=== PATIENT | female | born 1940 | race Hispanic/Latino ===

== ENCOUNTER 2016-07-06 17:40 | Inpatient (IN) | payer MEDICARE, MEDICAID ==
[~2016-07-06] VITALS: Ht 142.2 cm; Wt 65.2 kg
[2016-07-06 17:49] VITALS: BP 155/82; PULSE 106; RESP 24; O2SAT 91
--- NOTE | 2016-07-06 20:13 | DRSVH ---
PROCEDURE: X-RAY CHEST, TWO VIEWS ([id number]) INDICATIONS: cough TECHNIQUE: 2 views of the chest were acquired. COMPARISON: [facility], VIOLET, CHEST 2VW, 04/30/2014, 16:24. [facility], CR, C HEST 2VW, 09/10/2014, 15:01. FINDINGS: Surgical changes and devices: None. Lungs and pleura: No pleural effusions or pneumothorax. There is moderate chronic basilar predominan t interstitial pulmonary opacity. There appears to be slightly increased opacity within the bilateral lower lungs, consistent with superimposed pneumonia. Mediastinum: Mediastinal contours are normal. Heart size is normal. Bones and chest wall: No suspicious bony abnormalities. Soft tissues appear unremarkable. IMPRESSION: Moderate atypical pneumonia superimposed on chronic fibrosis. Dictated by: Ja Mendez M.D. on 07/06/2016 at 20:12 Approved by: Ja Mendez M.D. on 07/06/2016 at 20:12
[2016-07-06 20:54] LABS: BASOPHILS % (AUTO) 0.2 % (0-3); EOSINOPHILS % (AUTO) 0.9 % (0-5); MONOCYTES % (AUTO) 6.6 % (4-12); Mean Corpuscular Hemoglobin 27.3 pg (27.0-35.0); Mean Corpuscular Volume 80.1 fL (81-100); NEUTROPHILS % (AUTO) 83.9 % (40-74); Platelet Count 235 bil/L (150-400)
[2016-07-06] MEDS: HYDROmorphone 0.5 mg/0.5 mL iSecure Syringe IVPUSH PRN ×3 (20:58→22:15)
[2016-07-06 21:22] LABS: D-DIMER 0.9 mg/L (<0.50); INR 0.95 ratio
[2016-07-06 21:25] LABS: TROPONIN T 0.01 ug/L (0.0-0.011)
[2016-07-06] MEDS ORDERED: Azithromycin Inj 500 MG in Dextrose 5% w/Vial Mate 250 ML IV ONE (21:50)
[2016-07-06] MEDS ORDERED: cefTRIAXone Inj 1,000 MG in IV Premix 1 EACH IV ONE (21:50)
--- NOTE | 2016-07-06 22:06 | ED.REPORT ---
HPI-General Illness Date of Service Jul 06, 2016 ED Provider: Chase Singleton MD History of Present Illness: Ms. Ximena Castañeda is scheduled for CT chest tomorrow and bronchoscopy next week for increasing shortness of breath, cough, and generalized malaise/weakness. She has past medical history significant for unspecified interstitial lung disease, insulin-dependent diabetes on metformin and glipizide, and hypertension presents to [facility] emergency Department for 1 week symptoms of worsening shortness of breath, productive sputum and general malaise. Nursing Notes Stated Complaint: COUGH Chief Complaint: Respiratory Complaints Nursing Notes Reviewed: Yes Allergies: Coded Allergies: No Known Allergies (Unverified , 07/06/16) General Time Seen by MD: 18:45 Chief Complaint Breathing problem, Cough Sudden in Onset?: No Review of Systems A comprehensive review of systems was conducted with the patient and found to be negative except as above in the History of Present Illness. Full Review of Systems Constitutional: Reports: Weakness - generalized Respiratory: Reports: Prod cough, yellow, Shortness of breath Cardiovascular: Reports: Chest pain (pain with cough.) Musculoskeletal: Reports: Thoracic pain Complete sys rev & neg: except as marked. Physical Exam General: Elderly Mozambican-speaking lady sitting partially upright in bed in good spirits but tired appearing, distress controlled with 2 L oxygen nasal cannula, well-developed, well-nourished, appropriately interactive. Mild Kyphotic thoracic region. HEENT: Normocephalic, atraumatic. External ears without defect. Pupils equal, round, and reactive to light and accommodation. Anicteric sclerae, moist conjunctivae, and no lid lag. Oropharynx free of erythema and cobble stoning with moist mucosa. Neck: Supple with full range of motion. No jugular venous distension. No bruits. No lymphadenopathy or thyromegaly. Cardiovascular: Regular rate and rhythm with no murmurs, rubs, or gallops appreciated Pulmonary: No cough crackles bilaterally, no wheezes, or rhonchi, persistent cough present. Normal respiratory effort with no use of accessory muscles. Abdomen: Bowel tones present. Soft, nontender, nondistended. No hepatosplenomegaly or masses appreciated. Extremities: No clubbing, cyanosis, edema, or lymphadenopathy appreciated. Skin: Normal temperature, turgor, and texture; no rash, ulcers, or subcutaneous nodules appreciated. Neurological: Cranial nerves grossly intact. Normal muscle strength, tone, and bulk. Reflexes, coordination, and sensory function within normal limits. No known gait impairment. Psychiatric: Normal mood and affect. Alert and oriented to person, place, and time. Vital Signs Vital Signs Date Time Temp Pulse Resp B/P Pulse Ox O2 Delivery O2 Flow Rate FiO2 07/06/16 17:49 36.8 106 24 155/82 91 Room Air Interpretation & Diagnostics Lab Results Interpretation Result Diagram: 07/06/16203707/06/162037 Test 07/06/16 20:38 White Blood Count 14.9th/mm3 (3.8-10.1) Red Blood Count 4.33mil/mm3 (3.90-5.20) Hemoglobin 11.8g/dL (12.0-15.6) Hematocrit 34.7% (35.0-46.0) Mean Corpuscular Volume 80.1fL (81-100) Mean Corpuscular Hemoglobin 27.3pg (27.0-35.0) Mean Corpuscular Hemoglobin Concent 34.0% (32.0-37.0) Red Cell Distribution Width 13.2% (12.3-15.4) Platelet Count 235bil/L (150-400) Neutrophils (%) (Auto) 83.9% (40-74) Lymphocytes (%) (Auto) 8.1% (14-46) Monocytes (%) (Auto) 6.6% (4-12) Eosinophils (%) (Auto) 0.9% (0-5) Basophils (%) (Auto) 0.2% (0-3) Prothrombin Time 10.1sec (8.1-12.5) Prothromb Time International Ratio 0.95ratio Activated Partial Thromboplast Time 27.6sec (22.8-33.0) D-Dimer 0.9mg/L (<0.50) Sodium Level 131mEq/L (134-144) Potassium Level 3.8mEq/L (3.5-5.2) Chloride Level 91mEq/L (97-108) Carbon Dioxide Level 27mmol/L (18-29) Blood Urea Nitrogen 11mg/dL (8-27) Creatinine 0.59mg/dL (0.57-1.00) Estimat Glomerular Filtration Rate 142mL/min (>59) Glucose Level 89mg/dL (60-99) Lactic Acid Level 1.4mmol/L (0.4-2.0) Calcium Level 10.2mg/dL (8.5-10.1) Total Bilirubin 0.4mg/dL (0.0-1.2) Aspartate Amino Transf (AST/SGOT) 29U/L (0-50) Alanine Aminotransferase (ALT/SGPT) 12U/L (0-32) Alkaline Phosphatase 82U/L (25-165) Troponin T 0.010ug/L (0.0-0.011) Pro-B-Type Natriuretic Peptide 227.4pg/mL (0-738) Total Protein 7.8g/dL (6.4-8.4) Albumin 3.2g/dL (3.4-5.0) Re-Eval/Medical Decision Med Decision/Clinical Course Ms. Ximena Castañeda is scheduled for CT chest tomorrow and bronchoscopy next week for increasing shortness of breath, cough, and generalized malaise/weakness. She has past medical history significant for unspecified interstitial lung disease, insulin-dependent diabetes on metformin and glipizide, and hypertension. Here in the emergency department her white count was elevated to 14.9, heart rate was elevated at 106, and she was tachypneic at 24 on room air, satting 91%. She is currently afebrile. Rapid influenza screen negative. Hypercalcemic at 10.2, On chest x-ray showed a moderate increase in opacification likely atypical community-acquired pneumonia superimposed on chronic interstitial lung disease. Patient is to be admitted to the hospital under inpatient status to receive IV antibiotics 1 g Rocephin and 500 mg azithromycin. Furthermore she had an elevated d-dimer 0.9, CT chest PE was negative for PE. 1. CAP - 1 g IV rocephin, 500 mg IV azithromycin - To keep sats above 92% - Sputum culture ordered - Influenza rapid screen negative - Chest x-ray and CT confirm pneumonia. 2. Interstitial lung disease 3. Insulin-requiring diabetes II - Holding metformin continuing other medications. 4. Hypertension -Continue home medications. Discharge & Departure Shift Change Sign-Out Laboratory Evaluation: Lab evaluation discussed Imaging Studies: Imaging discussed Primary Impression: Pneumonia Referrals: Elizabeth Salmno MD (PCP) Attending Statement Evaluated Patient with Resident Dr. Arvizu and evaluated independently and agree with plan as above. 76-year-old female history of interstitial lung disease being evaluated as an outpatient presenting with chronic cough worsening over the past week with shortness breath. Cough productive green frothy sputum. Oxygen 91% on room air. Chest x-ray concerning for atypical pneumonia. CT with no evidence of PE, bilateral interstitial lung disease, mediastinal lymphadenopathy. Patient will be admitted to hospitalist service. Given one dose Rocephin, azithromycin. TYRA ARVIZU DO Jul 06, 2016 21:20 Chase Singleton MD Jul 07, 2016 00:09
[2016-07-06] MEDS ORDERED: Ondansetron 2 mg/mL 2 mL Inj IVPUSH PRN (23:30)
[2016-07-06] MEDS ORDERED: Alum-Mag Hydrox-Simeth 30 mL Suspension PO PRN ×2 (23:30→23:55)
[2016-07-06] MEDS ORDERED: Polyethylene Glycol (PEG) 17 Gm Powder PO PRN (23:55)
[2016-07-07] VITALS (8 sets, daily range): BP systolic 138–161; BP diastolic 52–77; PULSE 89–115; RESP 23–32; O2SAT 93–95
--- NOTE | 2016-07-07 00:13 | PCM.HPMED ---
Subjective Date of Service Jul 06, 2016 Primary Provider: Admitting Physician: Miles Sales MD Primary Care Physician: Elizabeth Salmon MD Attending Physician: Miles Sales MD Chief Complaint: Productive cough History of Present Illness: 76-year-old female with history of type II diabetes, diastolic heart failure with EF of 65%, hypertension, hyperlipidemia, and working diagnosis of interstitial lung disease with chronic cough presents to the emergency department after 1 week of increasing severity of cough with copious sputum production. History is obtained from group exercise instructor: Patient endorses malaise and weakness, anorexia, low by mouth intake, and chest pain bilaterally in the flanks on deep inspiration. Patient denies headache, fever, chills, changes in bowel or bladder, hemoptysis, dysuria, sore throat, myalgias. Patient was recently seen by gum remover as recently as yesterday at [facility] and notes are in the chart. At this appointment the prevailing diagnosis is interstitial lung disease the possibilities of HPV, IPF, or even sarcoidosis as there is an elevated huseyin level. CT of chest was also scheduled for tomorrow. On review of systems per patient were negative. In the ED the patient underwent chest x-ray which revealed moderate atypical pneumonia in setting of chronic fibrosis. D-dimer was mildly elevated and patient underwent CTA, which does not appear to show PE, however is currently being read by radiology. White count is 14.9, hemoglobin 11.8, hematocrit 34.7, platelets 235, left shift with neutrophils 83.9 Sodium 131, potassium at 3.8, chloride 91, bicarbonate 27, nightly 11, creatinine 0.59, glucose 89, lactic acid 1.4, calcium 10.2, LFTs normal, troponin normal, albumin is low at 3. Review of Systems: Complete his review of systems performed; pertinent positives and negatives per history of present illness, all other systems reviewed and are negative Allergies Coded Allergies: No Known Allergies (Unverified , 07/06/16) Home Medications Taken from pulmonary visit 07/05/2016 Amlodipine 10 mg tablet daily Aspirin 81 daily next cholecalciferol 1000 unit tablet daily Fluticasone 220 g actuation inhaler Glipizide 10 mg tablet daily Lantus Solostar insulin injection pen Hyzaar 100-12.5 mg tablets daily Metformin 1000 mg tablet Nitrofurantoin 100 mg capsule Pantoprazole 40 mg tablet Polyethylene glycol 17 g per dose oral patter Pravastatin 40 mg tablet ProAir HFA 90 g/actuation inhaler Sertraline 25 mg tablet PMH Type II diabetes Chronic diastolic heart failure with EF of 65%; last echo performed 03/16/2016 Hypertension Hyperlipidemia Interstitial lung disease Surgical History Hysterectomy ORIF ankle fracture Family History No family history of lung problems; patient does not know rest of family history Social History Hx Alcohol Use: Yes (occasional) Hx Substance Use: No Hx Tobacco Use: Yes Smoking Status: Former Smoker (smoked briefly for about 3 years but quit 20 years) Living Arrangement: with Family Exam Vital Signs Vital Sign - Last Date Time Temp Pulse Resp B/P Pulse Ox O2 Delivery O2 Flow Rate FiO2 07/06/16 17:49 36.8 106 24 155/82 91 Room Air Exam General: Patient is ill-appearing, very fatigued, no acute distress HEENT: PERRLA, EOMI, no JVD, mildly dry membranes Cardio: Tachycardic, no murmurs noted Respiratory: Coarse breath sounds diffusely throughout the lungs, poor respiratory effort due to pain, crackles noted in the bases bilaterally Abdomen: Nontender, positive bowel sounds, nondistended Extremities: No edema noted, no cyanosis Psych: Difficult to assess but patient seems to be a little bit down but appropriate for her current situation Neuro: Cranial nerves II through XII intact, sensation intact throughout, patient moving all 4 extremities seems annoyed To cooperate Skin: No rashes noted Lab and Diagnostics Result Diagram: 07/06/16203707/06/162037 X-Rays, CTs and MRIs Chest x-ray IMPRESSION: Moderate atypical pneumonia superimposed on chronic fibrosis. Dictated by: Ja Mendez M.D. on 07/06/2016 at 20:12 12-lead ECG Patient's sinus tachycardia with rate around 100, is left deviation of the axis , QTC is 440 Assessment & Plan 76-year-old female with type II diabetes, interstitial lung disease currently being worked up by pulmonology U presents to the ED with 1 week of worsening cough, sputum production, general malaise and weakness with a chest x-ray that reveals apical pneumonia. #1 acute hypoxia respiratory failure; is on admission; ongoing -Patient presents with symptoms consistent with CAP pneumonia -Patient requiring O2 by nasal cannula when she does not require this outpatient -Continue O2 supplementation keep saturation above 88% #2 sepsis secondary to acute community-acquired pneumonia; present on admission ; ongoing -Patient presents with symptoms consistent with CAP pneumonia, as well as elevated white count, tachycardic, and respirations about 22 -Chest x-ray reveals apical pneumonia -Patient started on Rocephin and azithromycin in the emergency department; these are appropriate for diagnosis and we will continue -Continue to follow CBC, BMP, pro-calcitonin -Blood and sputum cultures have been ordered and submitted to the lab for evaluation -Strep and legionella urine antigens will be ordered -Patient was placed in droplet precautions until influenza screen and PCR return negative -Tessalon Perles for cough -Tylenol and morphine for pain #3 type II diabetes; present admission; ongoing -Patient is on Lantus outpatient -We will order A1c -Old home oral medications -Continue Lantus at 20 units at bedtime and low correctional #4 chronic hypertension; present on admission; ongoing -Continue home Norvasc and Hyzaar does restart in a.m. -Current blood pressure 155/82 is likely due to pain induced by coughing #5 chronic hyperlipidemia; present on admission; stable -Continue on home statin #6 chronic diastolic heart failure; present admission; stable -No reason to assume that this patient is in acute CHF exacerbation as her R is no JVD or edema in the lower extremities -Of note patient is not on a beta delgado but she is on an ARB and diuretic #7 interstitial lung disease; present admission; currently being worked up outpatient #8 elevated d-dimer; present on admission; resolved -D-dimer of 0.9 with follow-up CT scan awaiting radiology read; wet read does not appear to have a pulmonary Disposition: Patient is being admitted to inpatient status under local floor with expected length of stay greater than to midnight due to severity of presentation, duration of treatment, risk of adverse events Pain Evaluation: Adequate Pain Control VTE Prophylaxis: Sub-Q Heparin (Unfractionated) Resuscitation Status: CPR: Attempt Resuscitation Attending Statement The patient was seen and examined together with Dr. Sanchez on 07/06 and I agree with the history, exam and plan as outlined in the note above. Laurent Sanchez DO Jul 06, 2016 23:59 Miles Sales MD Jul 07, 2016 01:17
[2016-07-07] MEDS: Heparin 5,000 Unit/mL Inj SUBQ SCH ×3 (01:43→17:30)
[2016-07-07] MEDS: 0.9% Sodium Chloride 1,000 ML IV SCH ×3 (01:43→21:09)
[2016-07-07 05:37] LABS: BASOPHILS % (AUTO) 0.2 % (0-3); EOSINOPHILS % (AUTO) 0.8 % (0-5); MONOCYTES % (AUTO) 7.1 % (4-12); Mean Corpuscular Hemoglobin 26.9 pg (27.0-35.0); Mean Corpuscular Volume 79.8 fL (81-100); Platelet Count 209 bil/L (150-400)
[2016-07-07 05:56] LABS: APPEARANCE,URINE HAZY (CLEAR,HAZY); COLOR,URINE YELLOW (YELLOW); OCCULT BLOOD,URINE TRACE (NEGATIVE); UROBILINOGEN,URINE NORMAL (NORMAL)
[2016-07-07 05:57] LABS: Magnesium 1.4 mg/dL (1.6-2.6)
[2016-07-07] MEDS ORDERED: GLIP10TA10 PO (06:40)
[2016-07-07] MEDS ORDERED: ASPI-973 PO (06:40)
[2016-07-07] MEDS ORDERED: FLUT12AE10 IH ×2 (06:40→18:03)
[2016-07-07] MEDS ORDERED: INSU100V7 SUBQ (06:40)
[2016-07-07] MEDS ORDERED: METF1000 PO (06:40)
[2016-07-07] MEDS ORDERED: AMLO10TA3 PO (06:40)
[2016-07-07] MEDS ORDERED: LOSA1TAB35 PO (06:40)
[2016-07-07] MEDS ORDERED: SERT25TA6 PO (06:40)
[2016-07-07] MEDS ORDERED: ALBU18HF INH ×2 (06:40→18:03)
[2016-07-07] MEDS ORDERED: CHOL100043 PO (06:40)
--- NOTE | 2016-07-07 06:48 | NUR ---
Admission note Pt was admitted as inpatient to ER #14 approx at 0115. Admission assessment and screening completed. Med-Rec updated. Pt was up to BR x 3. She walked approx. 150 feet. She tolerated well. VSS. Pt is Divehi speaking only. Spouse at the bedside providing support and comfort. No overt complications noted.
[2016-07-07] MEDS: Insulin Human REGular 300 Unit/3 mL Inj SUBQ SCH ×4 (07:51→21:51)
--- NOTE | 2016-07-07 08:24 | DRSVH ---
PROCEDURE: CT ANGIO CHEST PULMONARY EMBOLISM ([id number]) INDICATIONS: Dyspnea elevated ddimer TECHNIQUE: After the administration of intravenous contrast, 2 mm thick sections acquired from the pulmonary api bernice to the posterior costophrenic angles. 3-dimensional maximum intensity projection (MIP) coronal a nd sagittal reformats were then acquired through the thorax. For radiation dose reduction, the follo wing was used: automated exposure control, adjustment of mA and/or kV according to patient size. COMPARISON: [facility], CT, CHEST W/O CONTRAST, 09/17/2014, 13:58. FINDINGS: Image quality: Evaluation of pulmonary arterial system is limited secondary to timing of bolus and mo tion artifact. Mid and peripheral branches are considered nondiagnostic for evaluation of potential e mboli. Pulmonary arteries: Pulmonary arteries are normal in size, and demonstrate no intraluminal filling d efects to suggest central pulmonary embolism. Lungs and pleura: Prominent interstitial lung disease is present with honeycombing at the bases. No e ffusions or pneumothorax. Mediastinum: Heart size is normal, without pericardial effusion. No mediastinal or hilar adenopathy by size criteria, numerous lymph nodes are present, borderline in size.. Thoracic aorta is normal i n caliber and enhancement. Esophagus demonstrates distal thickening with hiatal hernia. Bones and chest wall: No suspicious bony lesions. Ribs and thoracic spine appear intact throughout. Thyroid gland is enlarged with multiple areas of low attenuation bilaterally.. No axillary or supr aclavicular adenopathy. Abdomen: Visualized upper abdominal solid organs appear normal in the early arterial phase of enhanc ement. IMPRESSION: 1. No evidence of central pulmonary embolism. Branches distal to the main pulmonary artery are consid ered nondiagnostic for evaluation, as above. 2. Severe interstitial lung disease. 3. Multiple borderline enlarged mediastinal lymph nodes as above, overall nonspecific. This could be related to infection or inflammation. However, recommend clinical history as associated with neoplasm cannot be excluded. 4. Enlarged thyroid gland with multiple areas of low attenuation, possibly related to nodules. Their overall unchanged. 5. Distal esophageal thickening, without significant interval change compared to 09/17/14. This could represent chronic esophagitis. If clinical concern exists, endoscopy may be obtained for additional e valuation. Dictated by: More Yo M.D. on 07/07/2016 at 8:23 Approved by: More Yo M.D. on 07/07/2016 at 8:23
[2016-07-07] MEDS ORDERED: Magnesium Sulf 4 Gm/100 mL H2O 4 GM in IV Premix 1 EACH IV ONE (08:30)
[2016-07-07] MEDS ORDERED: Potassium Chloride 20 mEq/15 mL 15mL Oral Soln PO ONE ×2 (08:30→12:15)
--- NOTE | 2016-07-07 12:20 | NUR ---
Social Work Note Initial Assessment: D/A: EMR reviewed, SW met with Pt and Pt's friend Alycia at [facility] with the assistance of an instrument installer to explain role and to discuss discharge planning. The Pt is a 76 y/o female that was admitted for pneumonia on 07/06/2016 according to EMR. Readmission score is not listed. The Pt has [employer] with DSHS supplement; unknown if Pt has LTC or VA benefits. The Pt's PCP is MD Elizabeth Salmon. The Pt lives in [place] with her , son, and [id number]. The Pt is independent at baseline. It is unknown at this time is she drives, is a caregiver, or utilizes any DME. The Pt's HH and SNF history is unknown at this time. The Pts DPOA status is unknown at this time. The Pt's friend stated that she or the Pt's son would be able to provide transportation home after discharge. 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 It was reported that the Pt's son is also in the process of applying for [employer] for the Pt via [employer]. SW will follow up with son when available to request additional information and offer support. SW will continue to follow. Plan: Pt to be discharge when medically stable with friend or family to provide transportation. SW to follow up with son when available to request additional information and offer support. SW will continue to follow. DANGELO Velasco MSW Addendum: 07/07/16 at 1221 by VALERIE THOMPSON Amended: Links added.
--- NOTE | 2016-07-07 14:07 | NUR ---
Transfer to [facility] Pt being transferred to [facility], room 3015 from ER. Pt has denied any pain today, tolerating general, diabetic diet without c/o nausea. Plan of care reviewed with pt and pt's family with the assistance of broadcast designer earlier today. Pt ready for transfer with all belongings. Report given to Cheryl Lisa RN. Addendum: 07/07/16 at 1715 by MATEO CHOWDHURY Admission Admit to room 3015 from ER via bed with family at bedside. Pleat Taper offered and declined. 2-3L O2 NC. IV self d/c'd, new placed. IVF infusing, Mag rider retrieved from pharmacy and initiated. Pt and family oriented to room and call light. Provider assessed. Plan updated on board. Making needs known using call light.
--- NOTE | 2016-07-07 15:08 | PCM.PNMED ---
Subjective Date of Service Jul 07, 2016 Subjective Patient appearing too exhausted and sleepy to answer questions. Friend at bedside. Endorses chills. Denies CP, fevers or nausea. Exam Vital Signs Vital Sign - Last Date Time Temp Pulse Resp B/P Pulse Ox O2 Delivery O2 Flow Rate FiO2 07/07/16 09:31 92 07/07/16 07:42 Supplement Oxygen 07/07/16 07:38 37.1 23 160/74 95 4.00 Intake and Output 07/06/16 07/06/16 07/07/16 Cumulative From/Thru 15:00 23:00 07:00 07/06/16 17:49 - 07/07/16 06:50 Intake Total 20 ml 624 ml 644 ml Balance 20 ml 624 ml 644 ml Intake IV Total 20 ml 624 ml 644 ml # Voids 3 3 Exam GEN: Patient is ill-appearing, appears fatigued, no acute distress, falling asleep between questions HEENT: PERRLA, EOMI, no JVD, dry mucous membranes CV: RRR, no murmurs appreciated, peripheral pulses intact and normal Respiratory: Coarse breath sounds with diffused crackles on bibasilar basis. shallow breaths, no use of accessory muscles, Abdomen: Soft, nontender, non-distended with normal bowel tones Extremities: No edema noted, no cyanosis Neuro: CN 2-12 grossly intact Psych: difficult to assess due to patient falling asleep IVs and Medications Medications Reviewed: Medications were reviewed in detail Lab and Diagnostics Result Diagram: 07/07/16 0515 07/07/16 0515 X-Rays, CTs and MRIs Chest x-ray IMPRESSION: Moderate atypical pneumonia superimposed on chronic fibrosis. Dictated by: Ja Mendez M.D. on 07/06/2016 at 20:12 12-lead ECG Patient's sinus tachycardia with rate around 100, is left deviation of the axis , QTC is 440 Assessment & Plan 76-year-old female with type II diabetes, interstitial lung disease currently being worked up by pulmonology U presents to the ED with 1 week of worsening cough, sputum production, general malaise and weakness with a chest x-ray that reveals atypical pneumonia. #1 acute hypoxia respiratory failure; present on admission; ongoing -Patient presents with symptoms consistent with CAP pneumonia -Patient requiring O2 by nasal cannula when she does not require this outpatient -Continue O2 supplementation keep saturation above 88% #2 sepsis secondary to acute community-acquired pneumonia; present on admission ; ongoing -Patient presents with symptoms consistent with CAP pneumonia, as well as elevated white count, tachycardic, and respirations about 22 -Chest x-ray reveals atypical pneumonia -Continue Rocephin and azithromycin -CURB 65 score of 2, moderate risk group with 6.8% 30-day mortality -Flu, strep, legionella and PCR negative -Procalcitonin pending -Sputum culture pending -Tessalon Lynn for cough -Tylenol and morphine for pain #3 type II diabetes; present admission; chronic -Patient is on Lantus outpatient -Continue Lantus at 20 units at bedtime and low correctional -Metformin held -A1c pending #4 chronic hypertension; present on admission; ongoing -Continue home Norvasc and Hyzaar #5 chronic hyperlipidemia; present on admission; stable -Continue on home statin #6 chronic diastolic heart failure; present admission; stable -No reason to assume that this patient is in acute CHF exacerbation as her R is no JVD or edema in the lower extremities -Of note patient is not on a beta delgado but she is on an ARB and diuretic #7 interstitial lung disease; present admission; currently being worked up outpatient #8 elevated d-dimer; present on admission; resolved -D-dimer of 0.9 with follow-up CT negative for PE Dispo: Anticipate discharge once medically stable in 2-3 days. VTE Prophylaxis: Sub-Q Heparin (Unfractionated) Resuscitation Status: CPR: Attempt Resuscitation Time spent 30 minutes Attending Statement I have seen and examined patient at bedside in addition to directly supervising care provided by resident physician. I agree with above documentation. Serene Watkins DO Jul 07, 2016 10:44 Ld Amaral DO Jul 08, 2016 07:33
[2016-07-07] MEDS: cefTRIAXone Inj 2,000 MG in Dextrose 5% Minibag Plus 50 ML IV SCH (17:29)
[2016-07-07] MEDS ORDERED: Albuterol HFA 60 Puff 8 Gm Inhaler INHALATION PRN (18:00)
[2016-07-07] MEDS ORDERED: Albuterol 2.5 mg/3 mL Inhalation Solution NEB PRN (20:00)
[2016-07-07] MEDS ORDERED: Fluticasone 250 mCg Inhaler INHALATION SCH (20:30)
[2016-07-07] MEDS: Fluticasone 250 mCg Inhaler INHALATION SCH (21:34)
[2016-07-07] MEDS: Azithromycin Inj 500 MG in Dextrose 5% w/Vial Mate 250 ML IV SCH (21:49)
[2016-07-07] MEDS: Insulin GLARgine 100 Unit/mL Syringe SUBQ SCH (21:50)
[2016-07-08 00:45] VITALS: BP 161/71; PULSE 77; RESP 24; O2SAT 94
[2016-07-08] MEDS: Heparin 5,000 Unit/mL Inj SUBQ SCH ×3 (00:50→16:03)
[2016-07-08] MEDS: 0.9% Sodium Chloride 1,000 ML IV SCH ×2 (05:02→15:57)
[2016-07-08 05:45] VITALS: BP 163/73; PULSE 83; RESP 22; O2SAT 93
--- NOTE | 2016-07-08 06:00 | NUR ---
Fever/Cough Pt was febrile 37.8. Administered 975mg Tylenol and effective, no further Fevers. pt c/o of cough and requesting medication to help decrease cough. Administered 100mg Tessalon pearls and helpful. VSS and pt is no longer on tele.
[2016-07-08 06:58] LABS: BASOPHILS % (AUTO) 0.2 % (0-3); MONOCYTES % (AUTO) 6.5 % (4-12); Mean Corpuscular Volume 81.4 fL (81-100); NEUTROPHILS % (AUTO) 77.4 % (40-74); Platelet Count 205 bil/L (150-400)
[2016-07-08 07:39] LABS: Magnesium 1.7 mg/dL (1.6-2.6)
[2016-07-08] MEDS ORDERED: HCTZ PO SCH (08:30)
[2016-07-08] MEDS ORDERED: LOSARTAN PO SCH (08:30)
[2016-07-08] MEDS: Ketotifen 0.025% 5 mL Ophthalmic Solution BOTH_EYES SCH ×2 (08:30→22:23)
[2016-07-08] MEDS ORDERED: KETO5DRO60 BOTH_EYES (08:38)
[2016-07-08] MEDS: Insulin Human REGular 300 Unit/3 mL Inj SUBQ SCH ×4 (08:44→21:21)
[2016-07-08] MEDS: Fluticasone 250 mCg Inhaler INHALATION SCH ×2 (08:49→21:16)
[2016-07-08 14:02] VITALS: BP 189/74; PULSE 91; RESP 24; O2SAT 95
--- NOTE | 2016-07-08 15:32 | NUR ---
Social Work: Readiness for d/c Data: Pt is on day 2 of hospitalization. EMR reviewed, pt discussed in rounds. MD states pt likely to d/c tomorrow. HEAD OF LOSS PREVENTION met with pt and son with orthoptist. They state that pt's son plans to bring pt home at discharge. HEAD OF LOSS PREVENTION asked if they would be interested in services and explained what the services are. They are interested and state no preference. HEAD OF LOSS PREVENTION referred to rotating calendar and referred pt to [facility], spoke with Luis Marques [phone]. Access given, F2F in HEAD OF LOSS PREVENTION folder. HEAD OF LOSS PREVENTION received a phone call from Viridiana GOMEZ CM with [facility] and HEAD OF LOSS PREVENTION gave her an update on pt and d/c plan. HEAD OF LOSS PREVENTION will continue to follow. Assessment: Pt who is independent at baseline. Plan: Pt will d/c home via POV when medically stable with son, likely tomorrow, with [facility] RN. HEAD OF LOSS PREVENTION will continue to follow. DANGELO Soni
--- NOTE | 2016-07-08 15:40 | PCM.PNMED ---
Subjective Date of Service Jul 08, 2016 Subjective Overnight with mild temperature elevation resolved by acetaminophen. Today, patient reports she is doing much better. Still continues to have much coughing. Otherwise with good appetite. Endorses SOB. Denies CP, pleuritic pain , fevers, chills or nausea. Exam Vital Signs Vital Sign - Last Date Time Temp Pulse Resp B/P Pulse Ox O2 Delivery O2 Flow Rate FiO2 07/08/16 14:02 37.1 91 24 189/74 95 Nasal Cannula 2.00 Intake and Output 07/07/16 07/07/16 07/08/16 Cumulative From/Thru 15:00 23:00 07:00 07/06/16 17:49 - 07/08/16 06:42 Intake Total 553 ml 385 ml 1116 ml 2698 ml Output Total 150 ml 100 ml 250 ml Balance 403 ml 285 ml 1116 ml 2448 ml Intake Oral 150 ml 150 ml IV Total 553 ml 235 ml 1116 ml 2548 ml Output Urine Total 150 ml 100 ml 250 ml # Voids 1 4 # Bowel Movements 1 1 2 Exam GEN: Patient sitting at bedside having breakfast, no acute distress HEENT: PERRLA, EOMI, no JVD, moist mucous membranes CV: RRR, no murmurs appreciated, peripheral pulses intact and normal Respiratory: Diffused crackles on bibasilar basis. shallow breaths, no use of accessory muscles, Abdomen: Soft, nontender, non-distended with normal bowel tones Extremities: No edema noted, no cyanosis Neuro: CN 2-12 grossly intact Psych: Normal mood and affect IVs and Medications Medications Reviewed: Medications were reviewed in detail Lab and Diagnostics Result Diagram: 07/08/16 0630 07/08/16 0630 X-Rays, CTs and MRIs Chest x-ray IMPRESSION: Moderate atypical pneumonia superimposed on chronic fibrosis. Dictated by: Ja Mendez M.D. on 07/06/2016 at 20:12 12-lead ECG Patient's sinus tachycardia with rate around 100, is left deviation of the axis , QTC is 440 Assessment & Plan 76-year-old female with type II diabetes, interstitial lung disease currently being worked up by pulmonology U presents to the ED with 1 week of worsening cough, sputum production, general malaise and weakness with a chest x-ray that reveals atypical pneumonia. #1 acute hypoxia respiratory failure; present on admission; improving -Patient presents with symptoms consistent with CAP pneumonia -Patient requiring O2 by nasal cannula when she does not require this outpatient -Continue O2 supplementation keep saturation above 88% #2 sepsis secondary to acute community-acquired pneumonia; present on admission ; Resolved. -Patient presents with symptoms consistent with CAP pneumonia, as well as elevated white count, tachycardic, and respirations about 22 -Chest x-ray reveals atypical pneumonia -Continue Rocephin and azithromycin -CURB 65 score of 2, moderate risk group with 6.8% 30-day mortality -Flu, strep, legionella and PCR negative -Procalcitonin 0.10 -Sputum culture pending -Tessalon Perles for cough -Tylenol and morphine for pain #3 type II diabetes; present admission; chronic -Patient is on Lantus outpatient -Continue Lantus at 20 units at bedtime and low correctional -Metformin held -A1c 7.6 #4 chronic hypertension; present on admission; ongoing -Continue home Norvasc and Hyzaar #5 chronic hyperlipidemia; present on admission; stable -Continue on home statin #6 chronic diastolic heart failure; present admission; stable -No reason to assume that this patient is in acute CHF exacerbation as her R is no JVD or edema in the lower extremities -Of note patient is not on a beta delgado but she is on an ARB and diuretic #7 interstitial lung disease; present admission; currently being worked up outpatient - patient to postpone bronchoscopy scheduled for tomorrow morning #8 elevated d-dimer; present on admission; resolved -D-dimer of 0.9 with follow-up CT negative for PE DVT prophy: Heparin SubQ, SCD GI prophy: not indicated CODE: FULL Dispo: Anticipate discharge tomorrow on oral antibiotics. VTE Prophylaxis: Sub-Q Heparin (Unfractionated), SCDs Resuscitation Status: CPR: Attempt Resuscitation Time spent 25 minutes Attending Statement I have seen and evaluated patient at bedside in addition to directly supervising care provided by resident physician. I agree with above documentation. Serene Watkins DO Jul 08, 2016 15:32 Ld Amaral DO Jul 09, 2016 08:37
[2016-07-08] MEDS: cefTRIAXone Inj 2,000 MG in Dextrose 5% Minibag Plus 50 ML IV SCH (15:58)
[2016-07-08 18:31] VITALS: BP 168/77; PULSE 89; RESP 24; O2SAT 96
[2016-07-08 20:57] VITALS: BP 157/78; PULSE 91; RESP 22; O2SAT 94
[2016-07-08] MEDS: Azithromycin Inj 500 MG in Dextrose 5% w/Vial Mate 250 ML IV SCH (21:16)
[2016-07-08] MEDS: Insulin GLARgine 100 Unit/mL Syringe SUBQ SCH (21:21)
[2016-07-09] MEDS: Heparin 5,000 Unit/mL Inj SUBQ SCH ×3 (01:35→17:16)
[2016-07-09] MEDS: 0.9% Sodium Chloride 1,000 ML IV SCH (03:15)
[2016-07-09 05:28] VITALS: BP 161/73; PULSE 89; RESP 20; O2SAT 95
[2016-07-09 06:19] LABS: BASOPHILS % (AUTO) 0.3 % (0-3); EOSINOPHILS % (AUTO) 1.5 % (0-5); MONOCYTES % (AUTO) 7.6 % (4-12); Mean Corpuscular Hemoglobin 27.4 pg (27.0-35.0); Mean Corpuscular Volume 78.7 fL (81-100); Platelet Count 256 bil/L (150-400)
--- NOTE | 2016-07-09 07:20 | NUR ---
Respiration Pt intermittent cough, yellowish sputum,small amount, mild sob with activities. Crackles and coarse lung sounds bilateral posterior LLs mostly, a few wheezes. SPO2 around 94% on O2 2l per nc. Tessalon barrett given, cough improved a little. VSS, afebrile.
[2016-07-09] MEDS: Insulin Human REGular 300 Unit/3 mL Inj SUBQ SCH ×4 (08:43→21:26)
[2016-07-09 09:23] VITALS: BP 178/81; PULSE 64; RESP 40; O2SAT 94
[2016-07-09] MEDS: Fluticasone 250 mCg Inhaler INHALATION SCH ×2 (09:35→21:16)
--- NOTE | 2016-07-09 13:35 | NUR ---
P: IV site leakage, infiltration I: D/C'd L AC IV; started new IV in R wrist E: One successful attempt. Patient tolerated procedure well. No leakage or infiltration of new IV site noted upon reassessment.
--- NOTE | 2016-07-09 13:36 | DRSVH ---
PROCEDURE: X-RAY CHEST ONE VIEW, PORTABLE ([id number]) INDICATIONS: hypoxia, ?volume overload TECHNIQUE: One view of the chest was acquired. COMPARISON: [facility], CR, XR CHEST 2VW, 07/06/2016, 19:56. FINDINGS: Surgical changes and devices: Diffuse, widespread bilateral pulmonary interstitial and air space opa cities are present increased from prior examination. Trace left pleural effusion. Lungs and pleura: No pleural effusions or pneumothorax. Lungs are clear. Mediastinum: Mediastinal contours appear normal. Heart size is normal. Bones and chest wall: No suspicious bony lesions. Overlying soft tissues appear unremarkable. IMPRESSION: Increasing pulmonary edema and/or diffuse bilateral inflammatory process and trace left p leural effusion is noted. Dictated by: Jj CANTOR Interpreted: More Yo MD on 07/09/2016 at 13:36 Transcribed by: RENETTA on 07/09/2016 at 13:36 Approved by: More Yo M.D. on 07/09/2016 at 15:24
[2016-07-09 14:12] VITALS: BP 128/73; PULSE 76; RESP 34; O2SAT 93
[2016-07-09] MEDS ORDERED: Furosemide 10 mg/mL 2 mL Inj IVPUSH ONE (14:15)
[2016-07-09] MEDS: cefTRIAXone Inj 2,000 MG in Dextrose 5% Minibag Plus 50 ML IV SCH (15:00)
[2016-07-09] MEDS ORDERED: 0.9% Sodium Chloride 250 ML ONE (16:11)
[2016-07-09 18:12] VITALS: BP 182/75; PULSE 87; RESP 38; O2SAT 95
--- NOTE | 2016-07-09 19:16 | PCM.PNMED ---
Subjective Date of Service Jul 09, 2016 Subjective No overnight events. Patient continues to complain of cough and mild shortness of breath. Endorses mild headache. Otherwise no concerns or complaints. Denies CP, throat or abdominal pain, fevers, chills or nausea. Exam Vital Signs Vital Sign - Last Date Time Temp Pulse Resp B/P Pulse Ox O2 Delivery O2 Flow Rate FiO2 07/09/16 18:12 37.1 87 38 182/75 95 Nasal Cannula 1.50 Intake and Output 07/08/16 07/08/16 07/09/16 Cumulative From/Thru 15:00 23:00 07:00 07/06/16 17:49 - 07/09/16 06:48 Intake Total 100 ml 1809 ml 1742 ml 6349 ml Output Total 1300 ml 1325 ml 2875 ml Balance -1200 ml 484 ml 1742 ml 3474 ml Intake Oral 100 ml 770 ml 200 ml 1220 ml IV Total 1039 ml 1542 ml 5129 ml Output Urine Total 1300 ml 1325 ml 2875 ml # Voids 4 8 # Bowel Movements 3 1 0 6 Exam GEN: Patient sitting at bedside dosing off, no acute distress HEENT: PERRLA, EOMI, no JVD, moist mucous membranes CV: RRR, no murmurs appreciated, peripheral pulses intact and normal Respiratory: Diffused rhonchi with crackles at bibasilar basis. slight wheezing appreciated on left, poor inspiratory effort provoking cough, no use of accessory muscles, Abdomen: Soft, nontender, non-distended with normal bowel tones Extremities: No edema noted, no cyanosis Neuro: CN 2-12 grossly intact Psych: Normal mood and affect IVs and Medications Medications Reviewed: Medications were reviewed in detail Lab and Diagnostics Result Diagram: 07/09/16 0550 07/09/16 0550 Microbiology Viral respiratory PCR panel negative Flu negative Strep pneumo negative X-Rays, CTs and MRIs Chest x-ray IMPRESSION: Moderate atypical pneumonia superimposed on chronic fibrosis. Dictated by: Ja Mendez M.D. on 07/06/2016 at 20:12 Date of Service: 07/09/16 0835 PROCEDURE: X-RAY CHEST ONE VIEW, PORTABLE ([id number]) INDICATIONS: hypoxia, ?volume overload IMPRESSION: Increasing pulmonary edema and/or diffuse bilateral inflammatory process and trace left pleural effusion is noted. Dictated by: Jj Choffel RRA Interpreted: More Yo MD on 07/09/2016 at 13: 36 12-lead ECG Patient's sinus tachycardia with rate around 100, is left deviation of the axis , QTC is 440 Assessment & Plan 76-year-old female with type II diabetes, interstitial lung disease currently being worked up by pulmonology U presents to the ED with 1 week of worsening cough, sputum production, general malaise and weakness with a chest x-ray that reveals atypical pneumonia. #1 acute hypoxia respiratory failure; present on admission; ongoing -Patient presents with symptoms consistent with CAP pneumonia -Patient requiring O2 by nasal cannula when she does not require this outpatient -Continue O2 supplementation keep saturation above 88% -Repeat CXR today shows Increasing pulmonary edema and/or diffuse bilateral inflammatory process and trace left pleural effusion -patient tolerating oral intake, IVF stopped #2 sepsis secondary to acute community-acquired pneumonia; present on admission ; Resolved. -Patient presents with symptoms consistent with CAP pneumonia, as well as elevated white count, tachycardic, and respirations about 22 -Chest x-ray reveals atypical pneumonia -Continue Rocephin and azithromycin Day3 -CURB 65 score of 2, moderate risk group with 6.8% 30-day mortality -Flu, strep, legionella and PCR negative -Procalcitonin 0.10 -Sputum culture negative -Tessalon Perles for cough -Tylenol and morphine for pain #3 hyponatremia; present on admission; ongoing -patient has IDL, SIADH a possibility -Lasix given today -will consider pulmonary consult if not resolving #4 chronic hypertension; present on admission; ongoing -Continue home Norvasc and Hyzaar -HCTZ increased from 12.5mg to 25mg -Metoprolol 12.5mg BID added #5 type II diabetes; present admission; chronic -Patient is on Lantus outpatient -Continue Lantus at 20 units at bedtime and low correctional -Metformin held -A1c 7.6 #6 chronic hyperlipidemia; present on admission; stable -Continue on home statin #7 chronic diastolic heart failure; present admission; stable -No reason to assume that this patient is in acute CHF exacerbation as her R is no JVD or edema in the lower extremities -Of note patient is not on a beta delgado but she is on an ARB and diuretic #8 interstitial lung disease; present admission; currently being worked up outpatient - patient to postpone scheduled outpatient bronchoscopy scheduled 07/09 #9 elevated d-dimer; present on admission; resolved -D-dimer of 0.9 with follow-up CT negative for PE DVT prophy: Heparin SubQ, SCD GI prophy: not indicated CODE: FULL Dispo: Anticipate discharge tomorrow on oral antibiotics. VTE Prophylaxis: Sub-Q Heparin (Unfractionated), SCDs VTE Mechanical Devices: Intermittant Pneumatic CD Resuscitation Status: CPR: Attempt Resuscitation Time spent 25 minutes Attending Statement I have seen and evaluated patient at bedside in addition to directly supervising care provided by resident physician. I agree with above documentation. eSrene Watkins DO Jul 09, 2016 19:10 Ld Amaral DO Jul 10, 2016 12:08
[2016-07-09] MEDS: Azithromycin Inj 500 MG in Dextrose 5% w/Vial Mate 250 ML IV SCH (21:17)
[2016-07-09] MEDS: Insulin GLARgine 100 Unit/mL Syringe SUBQ SCH (21:27)
[2016-07-09 22:23] VITALS: BP 171/75; PULSE 89; RESP 24; O2SAT 93
[2016-07-10] MEDS: Heparin 5,000 Unit/mL Inj SUBQ SCH ×2 (00:52→08:40)
[2016-07-10 01:10] VITALS: BP 172/75; PULSE 91; RESP 22; O2SAT 93
[2016-07-10 04:50] VITALS: BP 165/60; PULSE 76; RESP 24; O2SAT 92
--- NOTE | 2016-07-10 05:50 | NUR ---
Hypertension BP 177/73, 172/75, 165/60 HR 90s overnight, pt denies headaches. Pt currently on 4 types of scheduled hypertensive meds: Amlodipine, Losartan, hydrochlorothiazide dose increased yesterday, Metoprol added yesterday. Continue monitoring.
[2016-07-10 06:50] LABS: BASOPHILS % (AUTO) 0.3 % (0-3); EOSINOPHILS % (AUTO) 2.6 % (0-5); MONOCYTES % (AUTO) 8.6 % (4-12); Mean Corpuscular Hemoglobin 27.1 pg (27.0-35.0); Mean Corpuscular Volume 78.4 fL (81-100); NEUTROPHILS % (AUTO) 75.7 % (40-74); Platelet Count 276 bil/L (150-400)
[2016-07-10] MEDS ORDERED: Potassium Chloride 20 mEq SR Tablet PO ONE (07:45)
[2016-07-10] MEDS: Fluticasone 250 mCg Inhaler INHALATION SCH (08:40)
[2016-07-10] MEDS: Insulin Human REGular 300 Unit/3 mL Inj SUBQ SCH ×2 (08:40→11:26)
[2016-07-10 14:00] VITALS: BP 171/60; PULSE 91; RESP 22; O2SAT 93
[2016-07-10] MEDS: cefTRIAXone Inj 2,000 MG in Dextrose 5% Minibag Plus 50 ML IV SCH ×2 (14:43→14:53)
--- NOTE | 2016-07-10 14:59 | PCM.DIMED ---
Serene Watkins DO 07/10/16 1457: Discharge Instructions Date of Service Jul 10, 2016 Dates of Hospitalization Jul 06, 2016 at 22:34 Discharge Diagnosis Discharge Diagnosis #1 acute hypoxia respiratory failure #2 sepsis secondary to acute community-acquired pneumonia #3 type II diabetes; present admission #4 chronic hypertension; present on admission #5 chronic hyperlipidemia #6 chronic diastolic heart failure; present admission #7 interstitial lung disease; present admission; currently being worked up outpatient #8 elevated d-dimer; present on admission; resolved Diet Heart Healthy, Diabetic Activity Limited until seen by PCP Call your provider Fever or Chills, Shortness of breath, Chest pain Patient Instructions Please take the antibiotics for the next two days. We have made two changes to your blood pressure medications. - Your hydrochlorothiazide medication has been increased from 12.5mg daily to 25mg daily - Metoprolol 12.5 mg twice daily You are given more of the cough suppressants to take as needed for your cough. Please use as prescribed. 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 Make sure you follow up with your PCP, Dr. Johnson in 7-10 days to have hospital follow up and your blood pressure checked. Follow-up Provider: Elizabeth Salmon MD Follow-up with PCP in: 2 weeks Ld Amaral DO 07/11/16 0739: Discharge Instructions Attending's Statement Read and agree. Serene Watkins DO Jul 10, 2016 14:57 Ld Amaral DO Jul 11, 2016 07:39
[2016-07-10] MEDS ORDERED: BENZ100C8 PO (15:12)
[2016-07-10] MEDS ORDERED: PRA20 PO (15:12)
[2016-07-10] MEDS ORDERED: AZIT500T5 PO (15:12)
[2016-07-10] MEDS ORDERED: METO25TA6 PO (15:12)
[2016-07-10] MEDS ORDERED: LOSA1TAB70 PO (15:12)
--- NOTE | 2016-07-10 16:21 | NUR ---
Social Work: Discharge Data: Pt is on day 4 of hospitalization. EMR reviewed. Pt d/c orders are in. [employer]ER notified [facility] and faxed F2F to them. Access previously given. Pt's son plans to drive pt home today. No further d/c planning needs. Assessment: Pt who is independent at baseline. Plan: Pt will d/c home via POV today with family and [facility] RN. No further d/c planning needs. DANGELO Soni
--- NOTE | 2016-07-10 16:42 | NUR ---
Discharge Pt discharged to home at 1639. Taken off unit in wheelchair, accompanied by SENIOR FUNCTIONAL ANALYST and family. All pt belongings sent with pt. Discharge paperwork given and explained. Clinical Resource Director on a stick used for interpretation of instructions, as well as Icelandic speaking son. Hard copies of prescriptions given and pt instructed to follow up with PCP in 7-10 days.
--- NOTE | 2016-07-11 08:41 | PCM.DC.MED ---
Discharge Summary Date of Service Jul 10, 2016 Dates of Hospitalization Date of Hospital Admission Jul 06, 2016 at 22:34 Date of Discharge: Jul 10, 2016 Providers: Admitting Physician: Miles Sales MD Primary Care Physician: Elizabeth Salmon MD Attending Physician: Miles Sales MD Diagnosis at Time of Discharge Diagnosis at Time of Discharge #1 acute hypoxia respiratory failure #2 sepsis secondary to acute community-acquired pneumonia #3 type II diabetes; present admission #4 chronic hypertension; present on admission #5 chronic hyperlipidemia #6 chronic diastolic heart failure; present admission #7 interstitial lung disease; present admission; currently being worked up outpatient #8 elevated d-dimer; present on admission; resolved Procedures XRay, CTs & MRIs Chest x-ray IMPRESSION: Moderate atypical pneumonia superimposed on chronic fibrosis. Dictated by: Ja Mendez M.D. on 07/06/2016 at 20:12 Date of Service: 07/06/16 6306 PROCEDURE: CT ANGIO CHEST PULMONARY EMBOLISM ([id number]) INDICATIONS: Dyspnea elevated ddimer IMPRESSION: 1. No evidence of central pulmonary embolism. Branches distal to the main pulmonary artery are considered nondiagnostic for evaluation, as above. 2. Severe interstitial lung disease. 3. Multiple borderline enlarged mediastinal lymph nodes as above, overall nonspecific. This could be related to infection or inflammation. However, recommend clinical history as associated with neoplasm cannot be excluded. 4. Enlarged thyroid gland with multiple areas of low attenuation, possibly related to nodules. Their overall unchanged. 5. Distal esophageal thickening, without significant interval change compared to 09/17/14. This could represent chronic esophagitis. If clinical concern exists , endoscopy may be obtained for additional evaluation. Dictated by: More Yo M.D. on 07/07/2016 at 8:23 Date of Service: 07/09/16 0835 PROCEDURE: X-RAY CHEST ONE VIEW, PORTABLE ([id number]) INDICATIONS: hypoxia, ?volume overload IMPRESSION: Increasing pulmonary edema and/or diffuse bilateral inflammatory process and trace left pleural effusion is noted. Dictated by: Jj Borden [facility] Interpreted: More Yo MD on 07/09/2016 at 13: 36 ECG 12 Lead Patient's sinus tachycardia with rate around 100, is left deviation of the axis , QTC is 440 Brief History 76-year-old female with history of type II diabetes, diastolic heart failure with EF of 65%, hypertension, hyperlipidemia, and working diagnosis of interstitial lung disease with chronic cough presents to the emergency department after 1 week of increasing severity of cough with copious sputum production. History is obtained from seismic interpreter: Patient endorses malaise and weakness, anorexia, low by mouth intake, and chest pain bilaterally in the flanks on deep inspiration. Patient denies headache, fever, chills, changes in bowel or bladder, hemoptysis, dysuria, sore throat, myalgias. Patient was recently seen by assembler type bar and segment [place] [facility] [place] in the chart. At this appointment the prevailing diagnosis is interstitial lung disease the possibilities of HPV, IPF, or even sarcoidosis as there is an elevated huseyin level. CT of chest was also scheduled for tomorrow. On review of systems per patient were negative. In the ED the patient underwent chest x-ray which revealed moderate atypical pneumonia in setting of chronic fibrosis. D-dimer was mildly elevated and patient underwent CTA, which does not appear to show PE, however is currently being read by radiology. White count is 14.9, hemoglobin 11.8, hematocrit 34.7, platelets 235, left shift with neutrophils 83.9 Sodium 131, potassium at 3.8, chloride 91, bicarbonate 27, nightly 11, creatinine 0.59, glucose 89, lactic acid 1.4, calcium 10.2, LFTs normal, troponin normal, albumin is low at 3. Hospital Course 76-year-old female with type II diabetes, interstitial lung disease currently being worked up by pulmonology U presents to the ED with 1 week of worsening cough, sputum production, general malaise and weakness with a chest x-ray that reveals atypical pneumonia. Patient was given 3 days of IV antibiotics for CAP and symptoms significantly improved. Patient was discharged home with home health RN on another 2 days of oral antibiotics. Patient did miss her appointment for bronchoscopy, which was scheduled as outpatient procedure on 07/09 due to this hospitalization. Patient needs to follow up with this in order to get further work up for her interstitial lung disease. This was stressed to the patient and family at time of discharge, and family verbalized understanding of this. #1 acute hypoxia respiratory failure; present on admission; ongoing -Patient presents with symptoms consistent with CAP pneumonia -Patient requiring O2 by nasal cannula when she does not require this outpatient -Continue O2 supplementation keep saturation above 88% -Repeat CXR today shows Increasing pulmonary edema and/or diffuse bilateral inflammatory process and trace left pleural effusion -patient tolerating oral intake, IVF stopped #2 sepsis secondary to acute community-acquired pneumonia; present on admission ; Resolved. -Patient presents with symptoms consistent with CAP pneumonia, as well as elevated white count, tachycardic, and respirations about 22 -Chest x-ray reveals atypical pneumonia -Continue Rocephin and azithromycin Day3 -CURB 65 score of 2, moderate risk group with 6.8% 30-day mortality -Flu, strep, legionella and PCR negative -Procalcitonin 0.10 -Sputum culture negative -Tessalon Perles for cough -Tylenol and morphine for pain #3 hyponatremia; present on admission; ongoing -patient has IDL, SIADH a possibility -Lasix given today -will consider pulmonary consult if not resolving #4 chronic hypertension; present on admission; ongoing -Continue home Norvasc and Hyzaar -HCTZ increased from 12.5mg to 25mg -Metoprolol 12.5mg BID added #5 type II diabetes; present admission; chronic -Patient is on Lantus outpatient -Continue Lantus at 20 units at bedtime and low correctional -Metformin held -A1c 7.6 #6 chronic hyperlipidemia; present on admission; stable -Continue on home statin #7 chronic diastolic heart failure; present admission; stable -No reason to assume that this patient is in acute CHF exacerbation as her R is no JVD or edema in the lower extremities -Of note patient is not on a beta delgado but she is on an ARB and diuretic #8 interstitial lung disease; present admission; currently being worked up outpatient - patient to postpone scheduled outpatient bronchoscopy scheduled 07/09 #9 elevated d-dimer; present on admission; resolved -D-dimer of 0.9 with follow-up CT negative for PE DVT prophy: Heparin SubQ, SCD GI prophy: not indicated CODE: FULL Exam Vital Signs (Last) Date Time Temp Pulse Resp B/P Pulse Ox O2 Delivery O2 Flow Rate FiO2 07/10/16 04:50 37.1 76 24 165/60 92 Room Air 07/10/16 01:10 1.50 Exam GEN: AAOx3, interacting with family members sitting up at bedside HEENT: PERRLA, EOMI, moist mucous membranes CV: RRR, no murmurs, peripheral pulses intact and normal Respiratory: Diffused crackles. slight expiratory wheezing appreciated on left, no use of accessory muscles, Abdomen: Soft, nontender, non-distended with normal bowel tones Extremities: No edema noted, no cyanosis Neuro: CN 2-12 grossly intact Skin: normal skin turgor Psych: Normal mood and affect Test 07/06/16 20:38 07/06/16 23:07 07/07/16 05:00 07/07/16 05:15 Prothrombin Time 10.1sec (8.1-12.5) Prothromb Time International Ratio 0.95ratio Activated Partial Thromboplast Time 27.6sec (22.8-33.0) D-Dimer 0.9mg/L (<0.50) Troponin T 0.010ug/L (0.0-0.011) Pro-B-Type Natriuretic Peptide 227.4pg/mL (0-738) Hemoglobin A1c 7.6% (4.8-5.6) Urine Color Yellow (YELLOW) Urine Appearance Hazy (CLEAR,HAZY) Urine pH 6.0 (5.0-8.0) Urine Specific [place] 1.010 (1.003-1.035) Urine Protein Negativemg/dL (NEG,TRACE) Urine Glucose (UA) 250mg/dL (NEGATIVE) Urine Ketones 15mg/dL (NEGATIVE) Urine Occult Blood Trace (NEGATIVE) Urine Nitrite Negative (NEGATIVE) Urine Bilirubin Negative (NEGATIVE) Urine Urobilinogen Normalmg/dL (NORMAL) Urine Leukocyte Esterase Negative (NEGATIVE) Urine RBC 0-2/hpf (0-2) Urine WBC 0-5/hpf (0-5) Urine Epithelial Cells Few/hpf (NONE-MOD) Urine Crystals None seen (NONE SEEN) Urine Bacteria Few/hpf (NONE-FEW) Urine Hyaline Casts None/lpf (NONE) Urine Granular Casts None seen (NONE SEEN) Urine Waxy Casts None seen (NONE SEEN) Urine Red Blood Cell Casts None seen (NONE SEEN) Urine White Blood Cell Casts None seen (NONE SEEN) Urine Mucus Present (None Seen) Urine Trichomonas None seen (NONE SEEN) Urine Yeast None (NONE SEEN) Urinalysis Comment None Urine Culture Reflexed Not indicated Urine Legionella pneumophilia Ag Negative (Negative) Total Bilirubin 0.4mg/dL (0.0-1.2) Aspartate Amino Transf (AST/SGOT) 27U/L (0-50) Alanine Aminotransferase (ALT/SGPT) 12U/L (0-32) Alkaline Phosphatase 72U/L (25-165) Total Protein 7.0g/dL (6.4-8.4) Albumin 2.9g/dL (3.4-5.0) Test 07/07/16 14:35 07/08/16 06:30 07/09/16 05:50 07/10/16 05:15 Lactic Acid Level 0.8mmol/L (0.4-2.0) Magnesium Level 1.7mg/dL (1.6-2.6) Procalcitonin 0.13ng/mL (See Comment) White Blood Count 10.5th/mm3 (3.8-10.1) Red Blood Count 4.17mil/mm3 (3.90-5.20) Hemoglobin 11.3g/dL (12.0-15.6) Hematocrit 32.7% (35.0-46.0) Mean Corpuscular Volume 78.4fL (81-100) Mean Corpuscular Hemoglobin 27.1pg (27.0-35.0) Mean Corpuscular Hemoglobin Concent 34.6% (32.0-37.0) Red Cell Distribution Width 12.6% (12.3-15.4) Platelet Count 276bil/L (150-400) Neutrophils (%) (Auto) 75.7% (40-74) Lymphocytes (%) (Auto) 11.7% (14-46) Monocytes (%) (Auto) 8.6% (4-12) Eosinophils (%) (Auto) 2.6% (0-5) Basophils (%) (Auto) 0.3% (0-3) Test 07/10/16 12:57 Sodium Level 124mEq/L (134-144) Potassium Level 4.0mEq/L (3.5-5.2) Chloride Level 87mEq/L (97-108) Carbon Dioxide Level 24mmol/L (18-29) Blood Urea Nitrogen 6mg/dL (8-27) Creatinine 0.45mg/dL (0.57-1.00) Estimat Glomerular Filtration Rate 194mL/min (>59) Glucose Level 266mg/dL (60-99) Calcium Level 9.4mg/dL (8.5-10.1) Microbiology Results Viral respiratory PCR panel negative Flu negative Strep pneumo negative Discharge Medications Discharge Medications Amlodipine (Amlodipine) 10 Mg Tablet 10 MG PO DAILY (Reported) Aspirin (Aspirin) 81 Mg Tablet 81 MG PO DAILY (Reported) Azithromycin (Azithromycin) 500 Mg Tablet 500 MG PO DAILY Prescribed by: DIANNE MASTERSON DO Cholecalciferol (Vitamin D3) (Vitamin D) 1,000 Unit Tablet 1,000 UNIT PO DAILY ( Reported) Fluticasone Propionate (Flovent HFA 220 mcg) 12 Gm Aer.w.adap 2 PUFFS IH BID ( Reported) Glipizide (Glipizide) 10 Mg Tablet 10 MG PO DAILY (Reported) Insulin Glargine (Lantus U100 Insulin Vial) 100 Unit/Ml Vial 30 UNIT SUBQ HS ( Reported) Ketotifen Fumarate (Ketotifen Fumarate) 5 Ml Drops 1 DROP BOTH_EYES BID ( Reported) Losartan/HCTZ 100-25 mg (Losartan/HCTZ 100-25 mg) 1 Each Tablet 1 TABLET PO DAILY Prescribed by: DIANNE MASTERSON DO Metformin (Glucophage) 1,000 Mg Tablet 1,000 MG PO BID (Reported) Metoprolol Tartrate (Metoprolol Tartrate) 25 Mg Tablet 12.5 MG PO BID Prescribed by: DIANNE MASTERSON DO Pravastatin (Pravachol) 20 Mg Tablet 40 MG PO HS Prescribed by: DIANNE MASTERSON DO Sertraline HCl (Sertraline) 25 Mg Tablet 25 MG PO DAILY (Reported) As needed Albuterol Sulfate (Ventolin HFA Inhaler) 200 Puff/18 Gm Inhaler 1 PUFF INH Q4 PRN PRN For Wheezing (Reported) Benzonatate (Benzonatate) 100 Mg Capsule 100 MG PO TID PRN PRN For Cough Prescribed by: DIANNE MASTERSON DO Followup Plan Disposition: Home Discharge Diet: Heart Healthy, Diabetic Discharge Activity: Limited until seen by PCP Patient Instructions Please take the antibiotics for the next two days. We have made two changes to your blood pressure medications. - Your hydrochlorothiazide medication has been increased from 12.5mg daily to 25mg daily - Metoprolol 12.5 mg twice daily You are given more of the cough suppressants to take as needed for your cough. Please use as prescribed. Continue to follow up with your assembler type bar and segment to have them evaluate and manage your lungs. Make sure you follow up with your PCP, Dr. Johnson in 7-10 days to have hospital follow up and your blood pressure checked. Follow-up Provider: Elizabeth Salmon MD Follow-up with PCP in: 2 weeks Time spent 45 minutes Attending Statement I have seen and evaluated patient at bedside in addition to directly supervising care provided by resident physician. I agree with above documentation in discharge summary. copies to: Elizabeth Salmon MD, Fumiko O DO Jul 10, 2016 15:15 Ld Amaral DO Jul 11, 2016 13:28
== END 2016-07-10 16:36 | disposition home health service (06) | DRG 871 ==
LOC: SED 17:40 → OFED 22:34 → MPC 07-07 14:38
PROVIDERS: ADMIT Hospitalist; ATTEND Hospitalist
DX: A41.9 Sepsis, unspecified organism (principal); J18.9 Pneumonia, unspecified organism; J96.01 Acute respiratory failure with hypoxia; I50.32 Chronic diastolic (congestive) heart failure; E11.9 Type 2 diabetes mellitus without complications; I10 Essential (primary) hypertension; Z79.4 Long term (current) use of insulin; E78.5 Hyperlipidemia, unspecified